=== PATIENT | female | born 1980 | race Caucasian/White ===

== ENCOUNTER 2023-05-26 01:43 | Emergency (ER) | payer OTHER ==
[~2023-05-26] VITALS: Ht 165.1 cm; Wt 70.4 kg
--- NOTE | 2023-05-26 01:55 | ED General ---
General Stated Complaint: BLOOD DRAW History of Present Illness Date Seen by Provider: May 26, 2023 Time Seen by Provider: 01:51 Initial Comments 42-year-old female here for medical clearance for incarceration. Patient has no complaints. Allergies and Home Medications Patient Home Medication List Home Medication List Reviewed: Yes Review of Systems Review of Systems Constitutional: no symptoms reported, see HPI EENTM: no symptoms reported Respiratory: no symptoms reported Cardiovascular: no symptoms reported Gastrointestinal: no symptoms reported Genitourinary: no symptoms reported Physical Exam Vital Signs Capillary Refill : Height, Weight, BMI Height: '" Weight: lbs. oz. kg; BMI Method: General Appearance: No Apparent Distress, WD/WN Respiratory: Lungs Clear, Normal Breath Sounds Cardiovascular: Regular Rate, Rhythm, No Edema Extremity: Normal Capillary Refill, Normal Range of Motion Neurologic/Psychiatric: Alert, Oriented x3, No Motor/Sensory Deficits, Normal Mood/Affect, garnett feeder II-XII Norm as Tested Progress/Results/Core Measures Suspected Sepsis SIRS Temperature: Pulse: Respiratory Rate: Blood Pressure / Mean: Results/Orders Vital Signs/I&O Capillary Refill : Departure Impression Primary Impression: Medical clearance for incarceration Disposition: [address] DIS/[address]/[facility] Condition: Stable Departure-Patient Inst. Add. Discharge Instructions: Patient medically cleared for incarceration JR WATSON DO May 26, 2023 01:55
[2023-05-26 01:56] VITALS: BP 148/94
== END 2023-05-26 01:56 ==
LOC: ER FS 01:46
DX: Z02.79 Encounter for issue of other medical certificate (principal)
CPT/HCPCS: 99283